=== PATIENT | female | born 1990 | race Caucasian/White ===

== ENCOUNTER 2021-05-20 16:31 | Emergency (ER) | payer BC ==
[~2021-05-20] VITALS: Ht 167.6 cm; Wt 81.6 kg
[2021-05-20 17:40] VITALS: BP 134/82
== END 2021-05-20 17:30 | disposition home or self-care (01) ==
LOC: FSED 17:22
DX: R11.0 Nausea (principal); R42 Dizziness and giddiness; T75.4XXA Electrocution, initial encounter; W86.1XXA Exposure to industrial wiring, appliances and electrical machinery, initial encounter; Y92.512 Supermarket, store or market as the place of occurrence of the external cause
CPT/HCPCS: 93005; 99283